=== PATIENT | male | born 1945 | race Caucasian/White ===

== ENCOUNTER → 2022-08-08 | Outpatient (CLI) | payer BC ==
[~2022-08-08] MED LIST: DOXYCYCLINE 10100 MG PO; TESSALON P100 MG/CAP PO
== END ==
LOC: COL.RAD 07-30 14:30
DX: G31.9 Degenerative disease of nervous system, unspecified (principal)

== ENCOUNTER 2023-02-12 14:21 | Emergency (ER) | payer BC ==
[~2023-02-12] VITALS: Ht 172.7 cm; Wt 101.4 kg
[~2023-02-12 14:21] MED LIST changes: +PREDNISONE10 MG PO
[2023-02-12 14:25] VITALS: TEMP 97.4
[2023-02-12 16:19] VITALS: BP 137/80; PULSE 72
== END 2023-02-12 16:19 | disposition home or self-care (01) ==
LOC: COL.ER 14:21
DX: S09.90XA Unspecified injury of head, initial encounter (principal); S61.411A Laceration without foreign body of right hand, initial encounter; W01.198A Fall on same level from slipping, tripping and stumbling with subsequent striking against other object, initial encounter

== ENCOUNTER 2023-10-21 13:22 | Emergency (ER) | payer BC ==
[~2023-10-21] VITALS: Ht 172.7 cm; Wt 100.0 kg
[~2023-10-21 13:22] MED LIST changes: +CEPHALEXIN500 M1 PO
[2023-10-21 13:36] VITALS: TEMP 97.8
[2023-10-21 13:59] LABS: BASO % 0.5 % (0.0-2.0); EOS # 0.3 K/mm3 (0.0-0.7); EOS % 3.2 % (0.0-4.0); GRAN # 5.2 K/mm3 (1.4-6.5); GRAN % 66.2 % (42.2-75.2); HEMATOCRIT 41.9 % (42.0-52.0); HEMOGLOBIN 14.2 g/dl (13.5-18.0); LYMPH # 1.6 K/mm3 (1.2-3.4); LYMPH % 20.8 % (20.0-51.0); MEAN CELL VOLUME 92 fl (80.0-100.0); MEAN CORPUSCULAR HEMOGLOBIN 31 pg (27-31); MEAN CORPUSCULAR HGB CONC 34 g/dl (33.0-37.0); MEAN PLATELET VOLUME 10.2 fl (7.4-10.4); MONO # 0.7 K/mm3 (0.1-0.6); MONO % 8.9 % (1.7-9.3); PLATELET COUNT 223 K/mm3 (130-400); RED BLOOD COUNT 4.55 M/mm3 (4.20-5.60); REDCELL DISTRIBUTION WIDTH-CV 13.2 % (11.5-14.5)
[2023-10-21 14:13] LABS: ALBUMIN 3.8 gm/dL (3.4-4.8); ALKALINE PHOSPHATASE 101 U/L (40-150); ANION GAP 10 mmol/L (7-16); AST,SGOT 16 U/L (5-34); BILIRUBIN,TOTAL 0.6 mg/dL (0.2-1.2); BLOOD UREA NITROGEN 15 mg/dL (8-26); CALCIUM 9.3 mg/dL (8.4-10.2); CARBON DIOXIDE 22 mmol/L (23-31); CHLORIDE 109 mmol/L (98-107); CREATININE, serum 1.16 mg/dL (0.72-1.25); GLUCOSE 132 mg/dL (70-99); POTASSIUM 3.9 mmol/L (3.5-4.5); SODIUM 141 mmol/L (136-145); TOTAL PROTEIN 6.6 gm/dL (6.2-8.1)
[2023-10-21 14:16] LABS: ALANINE AMINOTRANSFERASE < 6 U/L (0-55)
[2023-10-21 15:09] VITALS: BP 135/75; PULSE 63
== END 2023-10-21 15:15 | disposition home or self-care (01) ==
LOC: COL.ER 13:22
PROVIDERS: Family Medicine
DX: S20.211A Contusion of right front wall of thorax, initial encounter (principal); Z95.5 Presence of coronary angioplasty implant and graft; Z95.0 Presence of cardiac pacemaker; W18.12XA Fall from or off toilet with subsequent striking against object, initial encounter

== ENCOUNTER 2023-10-25 08:51 | Emergency (ER) | payer BC ==
[~2023-10-25] VITALS: Ht 175.3 cm; Wt 100.0 kg
[2023-10-25 10:21] LABS: BASO # 0.1 K/mm3 (0.0-0.2); BASO % 0.6 % (0.0-2.0); EOS # 0.2 K/mm3 (0.0-0.7); EOS % 2.6 % (0.0-4.0); GRAN # 6.3 K/mm3 (1.4-6.5); GRAN % 71.1 % (42.2-75.2); HEMOGLOBIN 14.4 g/dl (13.5-18.0); LYMPH # 1.5 K/mm3 (1.2-3.4); LYMPH % 17.2 % (20.0-51.0); MEAN CELL VOLUME 92 fl (80.0-100.0); MEAN CORPUSCULAR HEMOGLOBIN 31 pg (27-31); MEAN CORPUSCULAR HGB CONC 34 g/dl (33.0-37.0); MEAN PLATELET VOLUME 10.2 fl (7.4-10.4); MONO # 0.7 K/mm3 (0.1-0.6); MONO % 8.2 % (1.7-9.3); PLATELET COUNT 216 K/mm3 (130-400); RED BLOOD COUNT 4.66 M/mm3 (4.20-5.60)
[2023-10-25 10:38] LABS: ALBUMIN 3.8 gm/dL (3.4-4.8); BILIRUBIN,TOTAL 0.6 mg/dL (0.2-1.2); CALCIUM 9.2 mg/dL (8.4-10.2); CREATININE, serum 1.14 mg/dL (0.72-1.25); POTASSIUM 3.9 mmol/L (3.5-4.5); TOTAL PROTEIN 6.5 gm/dL (6.2-8.1)
[2023-10-25] MEDS ORDERED: NS 100 ML IV SCH (12:04)
[2023-10-25] MEDS ORDERED: Iohexol 300 - 100 ML VIAL IV ONE (12:04)
[2023-10-25] MEDS ORDERED: NORCO 325 MG-51 TAB PO (12:47)
[2023-10-25 13:10] VITALS: BP 164/90; PULSE 65; TEMP 98.1
== END 2023-10-25 13:10 | disposition home or self-care (01) ==
LOC: COL.ER 08:51
PROVIDERS: Family Medicine
DX: S20.211A Contusion of right front wall of thorax, initial encounter (principal); G20.A1 Parkinson's disease without dyskinesia, without mention of fluctuations; Z95.5 Presence of coronary angioplasty implant and graft; Z95.0 Presence of cardiac pacemaker; Z88.6 Allergy status to analgesic agent; W19.XXXA Unspecified fall, initial encounter
CPT/HCPCS: Q9967

== ENCOUNTER 2023-12-21 13:39 | Emergency (ER) | payer BC ==
[~2023-12-21] VITALS: Ht 172.7 cm; Wt 102.3 kg
[~2023-12-21 13:39] MED LIST changes: +NORCO 325 MG-51 TAB PO
[2023-12-21 13:49] VITALS: TEMP 98.1
[2023-12-21 15:09] LABS: BASO # 0.1 K/mm3 (0.0-0.2); BASO % 0.7 % (0.0-2.0); EOS # 0.2 K/mm3 (0.0-0.7); EOS % 2.6 % (0.0-4.0); GRAN % 68.5 % (42.2-75.2); HEMATOCRIT 40.7 % (42.0-52.0); LYMPH # 1.5 K/mm3 (1.2-3.4); LYMPH % 17.1 % (20.0-51.0); MEAN CELL VOLUME 93 fl (80.0-100.0); MEAN CORPUSCULAR HEMOGLOBIN 32 pg (27-31); MEAN CORPUSCULAR HGB CONC 34 g/dl (33.0-37.0); MONO # 0.9 K/mm3 (0.1-0.6); MONO % 10.6 % (1.7-9.3); PLATELET COUNT 217 K/mm3 (130-400); RED BLOOD COUNT 4.38 M/mm3 (4.20-5.60); REDCELL DISTRIBUTION WIDTH-CV 12.7 % (11.5-14.5)
[2023-12-21 15:30] LABS: ALBUMIN 3.9 gm/dL (3.4-4.8); BILIRUBIN,TOTAL 0.3 mg/dL (0.2-1.2); CALCIUM 9.3 mg/dL (8.4-10.2); CREATININE, serum 1.3 mg/dL (0.72-1.25); TOTAL PROTEIN 6.5 gm/dL (6.2-8.1)
[2023-12-21 15:42] VITALS: BP 148/87; PULSE 64
== END 2023-12-21 15:50 | disposition home or self-care (01) ==
LOC: COL.ER 13:39
PROVIDERS: Family Medicine
DX: S20.211A Contusion of right front wall of thorax, initial encounter (principal); S00.93XA Contusion of unspecified part of head, initial encounter; L90.5 Scar conditions and fibrosis of skin; G20.A1 Parkinson's disease without dyskinesia, without mention of fluctuations; W01.198A Fall on same level from slipping, tripping and stumbling with subsequent striking against other object, initial encounter; Y92.511 Restaurant or cafe as the place of occurrence of the external cause

== ENCOUNTER → 2024-01-28 | Outpatient (REF) | payer BC ==
[2024-01-28 15:26] LABS: COLLECTION METHOD CLEAN CATCH
[2024-01-28 15:46] LABS: PH 5.5 (5.0-8.5); URINE APPEARANCE CLEAR (CLEAR/HAZY); URINE BLOOD NEGATIVE (NEGATIVE); URINE COLOR YELLOW (YELLOW); URINE GLUCOSE NEGATIVE (NEGATIVE); URINE KETONE NEGATIVE (NEGATIVE); URINE NITRATE NEGATIVE (NEGATIVE); URINE PROTEIN(semi-quant) NEGATIVE (NEGATIVE); URINE UROBILINOGEN 0.2 E.U/dL (0.2-1.0)
== END ==
LOC: ZCOL.LAB 13:53
PROVIDERS: Internal Medicine
DX: R39.15 Urgency of urination (principal)

== ENCOUNTER → 2024-01-29 | Outpatient (REF) | payer BC ==
[2024-01-29 11:14] LABS: BASO # 0.1 K/mm3 (0.0-0.2); EOS # 0.8 K/mm3 (0.0-0.7); EOS % 9.7 % (0.0-4.0); GRAN # 4.8 K/mm3 (1.4-6.5); HEMOGLOBIN 11.7 g/dl (13.5-18.0); LYMPH # 1.4 K/mm3 (1.2-3.4); LYMPH % 17.9 % (20.0-51.0); MEAN CELL VOLUME 93 fl (80.0-100.0); MEAN CORPUSCULAR HEMOGLOBIN 31 pg (27-31); MEAN CORPUSCULAR HGB CONC 34 g/dl (33.0-37.0); MONO # 0.7 K/mm3 (0.1-0.6); PLATELET COUNT 236 K/mm3 (130-400); RED BLOOD COUNT 3.73 M/mm3 (4.20-5.60); REDCELL DISTRIBUTION WIDTH-CV 12.5 % (11.5-14.5)
[2024-01-29 11:17] LABS: HEMATOCRIT 34.6 % (42.0-52.0)
[2024-01-29 11:27] LABS: ALBUMIN 3.8 g/dL (3.4-4.8); ALKALINE PHOSPHATASE 126 U/L (40-150); ANION GAP 13 mmol/L (7-16); AST,SGOT 12 U/L (5-34); BILIRUBIN,TOTAL 0.4 mg/dL (0.2-1.2); BLOOD UREA NITROGEN 21 mg/dL (8-26); CALCIUM 8.9 mg/dL (8.4-10.2); CHLORIDE 108 mEq/L (98-107); CHOLESTEROL 140 mg/dL (0-199); CHOLESTEROL RISK RATIO 4.6; CREATININE, serum 1.27 mg/dL (0.72-1.25); GLUCOSE 87 mg/dL (70-99); HDL CHOLESTEROL 30 mg/dL (40-60); LDL CHOLESTEROL 78 mg/dL; POTASSIUM 4.2 mEq/L (3.5-4.5); SODIUM 142 mEq/L (136-145); TOTAL PROTEIN 6.2 g/dl (6.2-8.1)
[2024-01-29 11:31] LABS: ALANINE AMINOTRANSFERASE < 6 U/L (0-55)
== END ==
LOC: ZCOL.LAB 11:03
PROVIDERS: Internal Medicine
DX: G20.C Parkinsonism, unspecified (principal); I10 Essential (primary) hypertension; E78.2 Mixed hyperlipidemia

== ENCOUNTER → 2024-07-15 | Outpatient (REF) | payer BC ==
[2024-07-15 10:09] LABS: BASO % 0.6 % (0.0-2.0); EOS # 0.4 K/mm3 (0.0-0.7); EOS % 5.4 % (0.0-4.0); GRAN # 4.7 K/mm3 (1.4-6.5); GRAN % 65.6 % (42.2-75.2); HEMOGLOBIN 12.2 g/dl (13.5-18.0); LYMPH # 1.2 K/mm3 (1.2-3.4); LYMPH % 16.6 % (20.0-51.0); MEAN CELL VOLUME 94 fl (80.0-100.0); MEAN CORPUSCULAR HEMOGLOBIN 32 pg (27-31); MEAN CORPUSCULAR HGB CONC 34 g/dl (33.0-37.0); MEAN PLATELET VOLUME 10.6 fl (7.4-10.4); MONO # 0.8 K/mm3 (0.1-0.6); MONO % 11.1 % (1.7-9.3); PLATELET COUNT 227 K/mm3 (130-400); RED BLOOD COUNT 3.83 M/mm3 (4.20-5.60); REDCELL DISTRIBUTION WIDTH-CV 13.1 % (11.5-14.5)
[2024-07-15 10:10] LABS: HEMATOCRIT 36.1 % (42.0-52.0)
[2024-07-15 10:28] LABS: ALBUMIN 3.6 g/dL (3.4-4.8); ALKALINE PHOSPHATASE 160 U/L (40-150); ANION GAP 12 mmol/L (7-16); AST,SGOT 11 U/L (5-34); BILIRUBIN,TOTAL 0.4 mg/dL (0.2-1.2); BLOOD UREA NITROGEN 21 mg/dL (8-26); CHLORIDE 108 mEq/L (98-107); CREATININE, serum 1.27 mg/dL (0.72-1.25); GLUCOSE 88 mg/dL (70-99); POTASSIUM 4.4 mEq/L (3.5-4.5); SODIUM 140 mEq/L (136-145); TOTAL PROTEIN 5.9 g/dl (6.2-8.1)
[2024-07-15 10:37] LABS: ALANINE AMINOTRANSFERASE < 6 U/L (0-55)
[2024-07-15 10:38] LABS: CHOLESTEROL 149 mg/dL (0-199); CHOLESTEROL RISK RATIO 5.9; HDL CHOLESTEROL 25 mg/dL (40-60); LDL CHOLESTEROL 77 mg/dL
[2024-07-15 10:48] LABS: THYROID STIMULATING HORMONE 1.921 uIU/mL (0.350-4.940)
== END ==
LOC: ZCOL.LAB 09:39
PROVIDERS: Internal Medicine
DX: G23.1 Progressive supranuclear ophthalmoplegia [Steele-Richardson-Olszewski] (principal)

== ENCOUNTER 2024-07-24 15:51 | Emergency (ER) | payer BC ==
[~2024-07-24] VITALS: Ht 175.3 cm; Wt 100.0 kg
[2024-07-24 15:56] VITALS: TEMP 97.6
[2024-07-24 19:17] VITALS: BP 126/70; PULSE 68
== END 2024-07-24 19:28 | disposition home or self-care (01) ==
LOC: COL.ER 15:51
DX: S01.111A Laceration without foreign body of right eyelid and periocular area, initial encounter (principal); W01.118A Fall on same level from slipping, tripping and stumbling with subsequent striking against other sharp object, initial encounter; Y92.002 Bathroom of unspecified non-institutional (private) residence as the place of occurrence of the external cause

== ENCOUNTER → 2024-08-05 | Outpatient (REF) | payer BC ==
[2024-08-05 11:01] LABS: COLLECTION METHOD CLEAN CATCH
[2024-08-05 11:05] LABS: URINE APPEARANCE CLEAR (CLEAR/HAZY); URINE BLOOD NEGATIVE (NEGATIVE); URINE COLOR YELLOW (YELLOW); URINE GLUCOSE NEGATIVE (NEGATIVE); URINE KETONE NEGATIVE (NEGATIVE); URINE NITRATE NEGATIVE (NEGATIVE); URINE PROTEIN(semi-quant) NEGATIVE (NEGATIVE); URINE UROBILINOGEN 0.2 E.U/dL (0.2-1.0)
== END ==
LOC: ZCOL.LAB 10:14
PROVIDERS: Internal Medicine
DX: N39.0 Urinary tract infection, site not specified (principal)